=== PATIENT | male | born 1965 | race Caucasian/White ===

== ENCOUNTER 2020-04-10 20:50 | Emergency (ER) | payer MEDICARE, MEDICAID ==
[2020-04-10 22:42] LABS: ABSOLUTE BASOPHILS # (AUTO) 0.1 10^3/uL (0.0-0.2); ABSOLUTE LYMPHOCYTES (AUTO) 3.1 10^3/uL (0.5-4.7); ABSOLUTE MONOCYTES (AUTO) 0.7 10^3/uL (0.1-1.4); ABSOLUTE NEUT (AUTO) 4.7 10^3/uL (1.7-8.2); BASOPHILS % (AUTO) 1.3 % (0-2); EOSINOPHILS % (AUTO) 0.5 % (0-6); HEMOGLOBIN 16.3 g/dL (13.5-17.0); MEAN CORPUSCULAR HEMOGLOBIN 31.2 pg (27.0-33.4); MEAN CORPUSCULAR VOLUME 92 fl (80-97); MONOCYTES % (AUTO) 8.3 % (3-13); PLATELET COUNT 248 10^3/uL (150-450); RED BLOOD COUNT 5.23 10^6/uL (4.35-5.55); RED CELL DISTRIBUTION WIDTH 14.8 % (11.5-14.0); SEGMENTED NEUTROPHILS % (AUTO) 53.9 % (42-78); TOTAL CELLS COUNTED % (AUTO) 100 %; WHITE BLOOD COUNT 8.7 10^3/uL (4.0-10.5)
[2020-04-10 23:13] LABS: ALBUMIN 4.4 g/dL (3.5-5.0); ALKALINE PHOSPHATASE 108 U/L (38-126); ANION GAP 16 (5-19); ASPARTATE AMINO TRANSFERASE 27 U/L (17-59); BILIRUBIN,DIRECT 0.3 mg/dL (0.0-0.4); BILIRUBIN,TOTAL 0.3 mg/dL (0.2-1.3); BLOOD UREA NITROGEN 12 mg/dL (7-20); CALCIUM 9.2 mg/dL (8.4-10.2); CARBON DIOXIDE 26 mmol/L (22-30); CHLORIDE 105 mmol/L (98-107); GLUCOSE 108 mg/dL (75-110); POTASSIUM 4.4 mmol/L (3.6-5.0); TOTAL PROTEIN 6.8 g/dL (6.3-8.2)
[2020-04-10 23:24] LABS: ACETAMINOPHEN < 10 ug/mL (10-30); SALICYLATE < 1.0 mg/dL (2.0-20.0)
[2020-04-10 23:27] LABS: ALCOHOL 372 mg/dL (NONE DETECTED)
--- NOTE | 2020-04-10 23:51 | ER Document Report ---
Entered by GUILLE HICKS SCRIBE 04/10/20 6331 Acting as scribe for:MILADY GAMBOA IV, MD ED Substance Abuse / Acc. OD - General Mode of Arrival: Medic Information source: Emergency Med Personnel <MILADY GAMBOA IV - Last Filed: 04/11/20 06:34> <ZEV CANDELARIO - Last Filed: 04/11/20 08:01> - General Chief Complaint: ETOH Abuse Stated Complaint: POSS INTOXICATION Primary Care Provider: RED DUMONT MD [HONORARY] - Follow up as needed Notes: This 54 year old male patient brought in by EMS presents to the ED today with complaints of ETOH abuse. Per nursing, patient was picked up by [facility] for acute intoxication. Patient reportedly drinks about x18-19 beers a day and is requesting assistance with detox. HPI is limited and PMHx/ROS are unobtainable due to patient's medical condition. (MILADY GAMBOA IV) Past Medical History - General Cannot obtain history due to: Intoxicated - Social History Smoking Status: Current Every Day Smoker Smoking Education Provided: No Family History: Reviewed & Not Pertinent <MILADY GAMBOA IV - Last Filed: 04/11/20 06:34> Review of Systems - Review of Systems -: Yes ROS unobtainable due to patient's medical condition - Intoxicated <MILADY GAMBOA IV - Last Filed: 04/11/20 06:34> Physical Exam - General General appearance: Other - Somnolent, but arousable to light touch In distress: None - HEENT Head: Normocephalic, Atraumatic Eyes: Normal Extraocular movements intact: Yes Pupils: PERRL - Respiratory Respiratory status: No respiratory distress Chest status: Nontender Breath sounds: Normal Chest palpation: Normal - Cardiovascular Rhythm: Regular Heart sounds: Normal auscultation Murmur: No Friction rub: No Gallop: None auscultated - Abdominal Inspection: Normal Distension: No distension Bowel sounds: Normal Tenderness: Nontender - Abdomen soft Organomegaly: No organomegaly - Back Back: Normal, Nontender - Extremities General upper extremity: Normal inspection General lower extremity: Normal inspection. No: Edema - Neurological Neuro grossly intact: Yes - Psychological Associated symptoms: Other - Unable to assess - Skin Skin Temperature: Warm Skin Moisture: Dry Skin Color: Normal <BEEMILADY IV - Last Filed: 04/11/20 06:34> - Vital signs Vitals: Temp Pulse Resp BP Pulse Ox 98.4 F 80 14 112/79 96 04/10/20 20:56 04/10/20 20:56 04/10/20 20:56 04/10/20 20:56 04/10/20 20:56 Course - Laboratory Result Diagrams: 04/10/20 22:15 04/10/20 22:15 - Transfer of Care Care transferred to following provider: dr. lackey at 0636 <BEEMILADY IV - Last Filed: 04/11/20 06:34> - Laboratory Result Diagrams: 04/10/20 22:15 04/10/20 22:15 <ZEV CANDELARIO - Last Filed: 04/11/20 08:01> - Re-evaluation Re-evalutation: 04/11/20 08:00 I received this patient in signout. Patient appears to be clinically sober. He is ambulating with steady gait. He is alert and oriented x3. He requests to leave the emergency department at this time. He does not want alcohol detox. We discussed resources and future care. Return precautions given, stable at time of discharge. 04/11/20 08:01 Per nursing, a cab ride has been provided for patient. (ZEV CANDELARIO) - Vital Signs Vital signs: Temp Pulse Resp BP Pulse Ox 97.8 F 89 16 137/86 H 95 04/11/20 07:58 04/11/20 07:58 04/11/20 07:58 04/11/20 07:58 04/11/20 07:58 - Laboratory Laboratory results interpreted by me: 04/10/20 04/10/20 04/11/20 22:15 22:15 02:22 RDW 14.8 H Sodium 146.7 H Urine Protein 30 H Urine Blood SMALL H Salicylates < 1.0 L Acetaminophen < 10 L Serum Alcohol 372 H* - EKG Interpretation by Me Additional EKG results interpreted by me: 04/11/20 06:35 EKG obtained on 04/10/2020 at 2223 hrs. was interpreted by this MD. Findings normal sinus rhythm, heart rate 89, normal axis, P waves proceed QRS complexes, QRS complexes appear narrow, there are no obvious patterns of ST segment elevation or depression present to suggest acute myocardial ischemia or infarction. Impression normal sinus rhythm with nonspecific ST segments. (MILADY GAMBOA IV) Discharge <MILADY GAMBOA KESHAWN - Last Filed: 04/11/20 06:34> <ZEV CANDELARIO - Last Filed: 04/11/20 08:01> - Discharge Clinical Impression: Acute alcohol intoxication Qualifiers: Complication of substance-induced condition: uncomplicated Qualified Code(s): F10.920 - Alcohol use, unspecified with intoxication, uncomplicated Condition: Stable Disposition: HOME, SELF-CARE Additional Instructions: Return to the Emergency Department without delay if any worse. HOME CARE INSTRUCTIONS & INFORMATION: Thank you for choosing us for your medical needs. We hope you're satisfied with the care you received. After you leave, you must properly care for your problem and, at the same time, observe its progress. Any condition can change. Some illnesses can change rapidly over hours or days. If your condition worsens, return to the Emergency Department or see your physician promptly. ABOUT YOUR X-RAYS AND EKG'S: If you had an EKG or X-rays taken, they have been read by the Emergency Physician. The X-rays and EKG's will also be read by a Radiologist or [facility] Bell Ringer within 24 hours. If discrepancies are noted, you will be notified by telephone. Please be certain the ED has a correct telephone number & address where you can be reached. Also, realize that some fractures o r abnormalities do not show up on initial X-rays. If your symptoms continue, see your physician. ABOUT YOUR LABORATORY TEST: If you had laboratory tests, the results have been reviewed by the Emergency Physician. Some test results (for example cultures) may not be available for several days. You will be contacted if any test result shows you need additional treatment. Please be certain the ED has a correct telephone number and address where you can be reached. ABOUT YOUR MEDICATIONS: You will receive instructions on how to take your medicine on the prescription label you receive. Additional information may be provided by the Pharmacy. If you have questions afterwards, call the ED for clarification or further instructions. Some prescribed medications may cause drowsiness. Do not perform tasks such as driving a car or operating machinery without consulting your Pharmacist. If you feel you need a refill of pain medication, your condition will need re-evaluation. Please do not call for a refill of any medication. ABOUT YOUR SIGNATURE: Signature of this document acknowledges to followin. Understanding that you received emergency treatment and that you may be released before al medical problems are known or treated. Please be certain the ED has a correct phone number & address where you can be reached. 2. Acknowledgement that you will arrange for follow-up care as recommended. 3. Authorization for the Emergency Physician to provide information to your follow-up Physician in order to maximize your care. AT ANY TIME, IF YOUR SYMPTOMS CHANGE SIGNIFICANTLY OR WORSEN OR YOU DEVELOP NEW SYMPTOMS, RETURN TO THE EMERGENCY DEPARTMENT IMMEDIATELY FOR RE-EVALUATION. OUR GOAL IS TO PROVIDE EXCELLENT MEDICAL CARE! WE HOPE THAT WE HAVE MET YOUR EXPECTATIONS DURING YOUR EMERGENCY DEPARTMENT VISIT AND THAT YOU FEEL YOU HAVE RECEIVED EXCELLENT CARE! Acute Alcohol Intoxication Your evaluation revealed very high levels of alcohol. You can from drinking a large amount of alcohol rapidly! Further, there's the risk of falls, traffic accidents, and fights. A high portion (about 50 percent) of the serious injuries seen in hospital emergency rooms are caused by alcohol. Alcohol overdosage is usually due to an underlying emotional or psychiatric problem. You may benefit from counselling. If "binge" drinking is an ongoing problem for you, or if you drink ANY AMOUNT of alcohol EVERY day, you most likely have a tendency to alcoholism. You should avoid alcohol totally. We can refer you for treatment. Persons with alcohol problems are often also prone to other addictions -- you should discuss any use of medications or drugs with the doctor. You should be watched at home for the next several hours by someone who has not been drinking. Get extra fluids for the next 24 hours. Call the doctor if there is repeated vomiting, increasing headache, decreasing level of alertness, or any other worsening. Referrals: RED DUMONT MD [HONORARY] - Follow up as needed I personally performed the services described in the documentation, reviewed and edited the documentation which was dictated to the scribe in my presence, and it accurately records my words and actions.
[2020-04-11] MEDS ORDERED: LIDOCAINE 2% VISCOUS SOLN 15 ML UDCUP PO ONE (02:15)
[2020-04-11] MEDS ORDERED: METOCLOPRAMIDE HCL ORAL SOLN 10 MG/10 ML UDCUP PO ONE (02:16)
[2020-04-11] MEDS ORDERED: MAG HYDROX/AL HYDROX/SIMETH SUSP 30 ML UDCUP PO ONE (02:16)
[2020-04-11 02:50] LABS: APPEARANCE,URINE CLEAR; BILIRUBIN,URINE NEGATIVE (NEGATIVE); COLOR,URINE YELLOW; GLUCOSE, URINE NEGATIVE (NEGATIVE); KETONES,URINE NEGATIVE (NEGATIVE); LEUKOCYTE ESTERASE,URINE NEGATIVE (NEGATIVE); NITRITE,URINE NEGATIVE (NEGATIVE); PROTEIN,URINE 30 mg/dL (NEGATIVE); URINE SPECIFIC GRAVITY 1.013; UROBILINOGEN,URINE NEGATIVE mg/dL (<2.0)
[2020-04-11 03:20] LABS: URINE AMPHETAMINES SCREEN NEGATIVE; URINE BENZODIAZEPINES SCREEN NEGATIVE; URINE COCAINE SCREEN NEGATIVE; URINE MARIJUANA (THC) SCREEN NEGATIVE; URINE METHADONE SCREEN NEGATIVE; URINE PHENCYCLIDINE SCREEN NEGATIVE
[2020-04-11 03:29] LABS: URINE BARBITURATES SCREEN UNCONFIRMED POSITIVE
[2020-04-11] MEDS ORDERED: LORAZEPAM 1 MG TABLET PO ONE (04:57)
[2020-04-11] MEDS ORDERED: DIAZEPAM 5 MG TABLET PO ONE (06:05)
[2020-04-11] MEDS ORDERED: HYDROXYZINE PAMOATE 50 MG CAPSULE PO ONE (06:57)
[2020-04-11 07:58] VITALS: BP 137/86
--- NOTE | 2020-04-11 10:38 | EKG REPORT ---
SEVERITY:- BORDERLINE ECG - SINUS RHYTHM BORDERLINE T ABNORMALITIES, ANT-LAT LEADS : Confirmed by: Zulay Schuler MD 11-Apr-2020 10:37:26
== END 2020-04-11 08:02 | disposition home or self-care (01) ==
LOC: EDBD → ER 20:50
DX: F10.920 Alcohol use, unspecified with intoxication, uncomplicated (principal); F17.200 Nicotine dependence, unspecified, uncomplicated
CPT/HCPCS: 93005; 99284; 36415; 80307 ×4; 85025; 80053; 81001; 93010; A9270 ×5; J3490